=== PATIENT | female | born 1970 | race Caucasian/White ===

== ENCOUNTER 2017-11-29 19:33 | Emergency (ER) | payer OTHER ==
[2017-11-29 22:11] LABS: Basophils # (Auto) 0.1 K/mm3 (0.0-0.1); Basophils % (Auto) 0.4 % (0.0-1.8); Eosinophils # (Auto) 0.2 K/mm3 (0.0-0.4); Hematocrit 43.5 % (30.3-42.9); Hemoglobin 14.6 gm/dl (10.1-14.3); Lymphocytes # (Auto) 1.7 K/mm3 (1.2-5.4); Mean Corpuscular HGB Conc 33 % (30-34); Mean Corpuscular Hemoglobin 28 pg (28-32); Mean Corpuscular Volume 84 fl (79-97); Monocytes # (Auto) 1.4 K/mm3 (0.0-0.8); Monocytes % (Auto) 7.6 % (0.0-7.3); Platelet Count 238 K/mm3 (140-440); Red Blood Count 5.19 M/mm3 (3.65-5.03); Red Cell Distribution Width 13.2 % (13.2-15.2)
[2017-11-29 22:34] LABS: Alanine Aminotransferase 12 units/L (7-56); Albumin 3.3 g/dL (3.9-5); BUN/Creatinine Ratio 18; Blood Urea Nitrogen 7 mg/dL (7-17); Calcium 8.8 mg/dL (8.4-10.2); Hemolysis Index 16
[2017-11-30 04:50] LABS: Bilirubin,Urine NEG (Negative); Blood,Urine NEG (Negative); Color,Urine Yellow (Yellow); Mucus,Urine FEW /HPF; Nitrite,Urine NEG (Negative); Protein,Urine <15 mg/dL mg/dL (Negative); Urobilinogen,Urine < 2.0 mg/dL (<2.0)
[2017-11-30] MEDS ORDERED: NORCO 5/325 PO ONE (07:38)
[2017-11-30] MEDS ORDERED: AUGMENTIN 875 MG PO ONE (07:38)
[2017-11-30 07:47] VITALS: BP 116/73
--- NOTE | 2017-11-30 08:09 | Emergency Department Report ---
HPI - General Chief Complaint: Abdominal Pain Time Seen by Provider: 11/30/17 07:28 - HPI HPI: This is a 47-year-old female presents to the emergency department with complaint of a 3 to four-day history of a headache, body aches, sore throat. She took some Motrin for pain with some transient relief. She also has some left sided lower abdominal and/or pelvic pain. She denies any dysuria, vaginal bleeding or discharge. She has a past medical history of hypertension. Recent travel or sick contacts at home. She has a primary care physician through [facility] but has not seen them regarding her symptoms. She denies any visual change, slurred speech, chest pain, shortness of breath or any fever. ED Past Medical Hx - Past Medical History Previous Medical History?: Yes Hx Hypertension: Yes - Surgical History Past Surgical History?: No - Social History Smoking Status: Never Smoker Substance Use Type: None - Medications Home Medications: Home Medications Medication Instructions Recorded Confirmed Last Taken Type Famotidine [Pepcid] 20 mg PO BID #14 tablet 12/23/14 Unknown Rx Ondansetron [Zofran Odt] 4 mg PO Q6H #20 tab.rapdis 12/23/14 Unknown Rx traMADol [Ultram] 50 mg PO Q6HR PRN #20 tablet 12/23/14 Unknown Rx Amoxicillin/Potassium Clav 1 each PO BID #20 tablet 11/30/17 Unknown Rx [Augmentin 875-125 Tablet] ED Review of Systems ROS: Stated complaint: BODY PAIN Other details as noted in HPI Constitutional: denies: chills, fever Eyes: denies: eye pain, eye discharge, vision change ENT: throat pain. denies: ear pain Respiratory: denies: cough, shortness of breath, wheezing Cardiovascular: denies: chest pain, palpitations Gastrointestinal: abdominal pain. denies: nausea, diarrhea Genitourinary: denies: urgency, dysuria, discharge Musculoskeletal: back pain, myalgia Skin: denies: rash, lesions Neurological: denies: headache, weakness, paresthesias Physical Exam - Physical Exam Vital Signs: Vital Signs 11/29/17 11/30/17 11/30/17 21:40 07:30 07:40 Temperature 98.5 F Pulse Rate 91 H 56 L Respiratory 16 16 16 Rate Blood Pressure 116/71 Blood Pressure 116/73 [Left] O2 Sat by Pulse 100 98 Oximetry Physical Exam: GENERAL: The patient is well-developed well-nourished. HENT: Normocephalic. Atraumatic. Patient has moist mucous membranes. Oropharynx shows some mild tonsillar hypertrophy and erythema but no exudates. No drooling or trismus. EYES: Extraocular motions are intact. Pupils equal reactive to light bilaterally. NECK: Supple. Trachea is midline. CHEST/LUNGS: Clear to auscultation. No cough heard during examination. There is no respiratory distress noted. HEART/CARDIOVASCULAR: Regular. There is no tachycardia. There is no murmur. ABDOMEN: Abdomen is soft. No abdominal pain to palpation but the patient points towards some left-sided pelvic discomfort. No guarding or rebound tenderness. Patient has normal bowel sounds. There is no abdominal distention. SKIN: Skin is warm and dry. NEURO: The patient is awake, alert, and oriented. The patient is cooperative. The patient has no focal neurologic deficits. The patient has normal speech. MUSCULOSKELETAL: There is no tenderness or deformity. There is no limitation range of motion. There is no evidence of acute injury. ED Course Vital Signs 11/29/17 11/30/17 11/30/17 21:40 07:30 07:40 Temperature 98.5 F Pulse Rate 91 H 56 L Respiratory 16 16 16 Rate Blood Pressure 116/71 Blood Pressure 116/73 [Left] O2 Sat by Pulse 100 98 Oximetry ED Medical Decision Making - Lab Data Result diagrams: 11/29/17 22:00 11/29/17 22:00 - Radiology Data Radiology results: report reviewed, image reviewed interpreted by me: Abdominal x-ray shows nonspecific nonobstructive bowel gas. ULTRASOUND PELVIC DUPLEX DOPPLER COMPLETE ULTRASOUND TRANSVAGINAL HISTORY: Pelvic pain. COMPARISON: None. TECHNIQUE: Transabdominal and transvaginal ultrasound with color and spectral doppler interrogation. FINDINGS: Uterus: 9 x 4 x 5 cm. No uterine mass is appreciated. Normal cervix. Endometrium: 5 mm. No abnormality appreciated. Right ovary: 1.8 x 0.7 x 1.3 cm. No focal abnormality. Left ovary: 1.7 x 0.7 x 1.2 cm. No focal abnormality. No pelvic fluid or mass is identified. Spectral Doppler waveforms demonstrate arterial flow to both ovaries IMPRESSION: Unremarkable transabdominal and transvaginal pelvic ultrasounds. Transcribed By: TTR Dictated By: VILMA STAPLES JR, MD Electronically Authenticated By: VILMA STAPLES JR, MD Signed Date/Time: 11/30/17 0901 - Medical Decision Making Patient presents with some body aches, sore throat, headache and some lower abdominal and pelvic discomfort. She was positive for strep. Labs are positive for a leukocytosis but otherwise are unremarkable. She was covered with some Augmentin. Abdominal pain is not reproducible to palpation but the patient points towards an area of the left pelvis. For this reason an ultrasound was done but it did not show any signs of torsion, fibroids, mass or any other acute process or etiology of her pain. Abdominal x-ray shows nonspecific nonobstructive bowel gas. Vital signs stable. Course including being afebrile. She was given a single tramadol pill and upon reevaluation she says she is feeling improved. Her headache has improved if not resolved. She does not have any focal, motor or sensory deficits in her cranial nerves are intact. All this is most likely consistent with her strep pharyngitis. She will go home on a ten-day course of Augmentin and follow up with her primary care physician. She will return to the ER with any worsening of her symptoms or any distress. - Differential Diagnosis viral syndrome, strep pharyngitis, influenza, diverticulitis Critical Care Time: No Critical care attestation.: If time is entered above; I have spent that time in minutes in the direct care of this critically ill patient, excluding procedure time. ED Disposition Clinical Impression: Strep pharyngitis, Body aches Abdominal pain Qualifiers: Abdominal location: left lower quadrant Qualified Code(s): R10.32 - Left lower quadrant pain Disposition: -01 TO HOME OR SELFCARE Is pt being admited?: No Condition: Stable Instructions: Strep Throat (ED), Abdominal Pain (ED) Additional Instructions: Please follow-up with your primary care physician in the next few days. Return to the emergency Department with any worsening of your symptoms or any acute distress. Prescriptions: Amoxicillin/Potassium Clav [Augmentin 875-125 Tablet] 1 each PO BID #20 tablet Referrals: PRIMARY CAREMD [Primary Care Provider] - 3-5 Days Forms: Work/School Release Form(ED) Time of Disposition: 09:44
--- NOTE | 2017-11-30 09:07 | Ultrasound Report ---
ULTRASOUND PELVIC DUPLEX DOPPLER COMPLETE ULTRASOUND TRANSVAGINAL HISTORY: Pelvic pain. COMPARISON: None. TECHNIQUE: Transabdominal and transvaginal ultrasound with color and spectral doppler interrogation. FINDINGS: Uterus: 9 x 4 x 5 cm. No uterine mass is appreciated. Normal cervix. Endometrium: 5 mm. No abnormality appreciated. Right ovary: 1.8 x 0.7 x 1.3 cm. No focal abnormality. Left ovary: 1.7 x 0.7 x 1.2 cm. No focal abnormality. No pelvic fluid or mass is identified. Spectral Doppler waveforms demonstrate arterial flow to both ovaries IMPRESSION: Unremarkable transabdominal and transvaginal pelvic ultrasounds.
--- NOTE | 2017-11-30 09:25 | XRay Report ---
ABDOMEN, 2 views: History: Abdominal pain. There is no evidence of free air beneath the diaphragms. The gas pattern within the abdomen is unremarkable. There is no evidence of bowel dilatation, significant air-fluid levels, or pathologic calcifications. Organ shadows are unremarkable. IMPRESSION: Unremarkable abdomen.
== END 2017-11-30 10:18 | disposition home or self-care (01) ==
LOC: ED 19:33
DX: R10.32 Left lower quadrant pain (principal); J02.0 Streptococcal pharyngitis; M79.1 Myalgia; I10 Essential (primary) hypertension
CPT/HCPCS: 36415; 74019; 76830; 80053; 81001; 84703; 85025; 87430; 93975